=== PATIENT | female | born 1935 | race Two or more races ===

== ENCOUNTER 2017-09-12 09:02 | Outpatient (CLI) | payer OTHER ==
[~2017-09-12 09:02] MED LIST: INDERAL LA120 MG; SYNTHROID137 MCG; ZOCOR20 MG
== END 2017-09-12 09:10 | disposition home or self-care (01) ==
LOC: LAB 09:02
DX: C18.0 Malignant neoplasm of cecum (principal)

== ENCOUNTER 2017-09-13 08:18 | Outpatient (CLI) | payer OTHER | END 2017-09-13 08:25 | disposition home or self-care (01) | LOC: LAB 08:18 | DX: C18.0 Malignant neoplasm of cecum (principal) ==

== ENCOUNTER 2017-12-25 10:47 | Outpatient (CLI) | payer OTHER | END 2017-12-25 10:51 | disposition home or self-care (01) | LOC: LAB 10:47 | DX: E03.8 Other specified hypothyroidism (principal); E78.2 Mixed hyperlipidemia; E55.9 Vitamin D deficiency, unspecified; M81.0 Age-related osteoporosis without current pathological fracture; R73.09 Other abnormal glucose ==

== ENCOUNTER 2017-12-26 14:16 | Outpatient (CLI) | payer OTHER | END 2017-12-26 14:21 | disposition home or self-care (01) | LOC: SONOGRAMA 14:16 | DX: E04.2 Nontoxic multinodular goiter (principal) ==

== ENCOUNTER → 2018-01-26 | Emergency (ER) | payer OTHER ==
[~2018-01-26] VITALS: Ht 157.5 cm; Wt 52.2 kg
== END | disposition home or self-care (01) ==
LOC: ER 07:27
DX: J22 Unspecified acute lower respiratory infection (principal)

== ENCOUNTER 2018-08-01 12:10 | Outpatient (CLI) | payer OTHER | END 2018-08-01 12:25 | disposition home or self-care (01) | LOC: LAB 12:10 | DX: E11.65 Type 2 diabetes mellitus with hyperglycemia (principal); N39.0 Urinary tract infection, site not specified; D50.8 Other iron deficiency anemias; Z12.11 Encounter for screening for malignant neoplasm of colon ==

== ENCOUNTER 2018-08-07 14:08 | Outpatient (CLI) | payer OTHER | END 2018-08-07 15:00 | disposition home or self-care (01) | LOC: NUCLEAR 14:08 | DX: M81.0 Age-related osteoporosis without current pathological fracture (principal) ==